=== PATIENT | male | born 1960 | race Caucasian/White ===

== ENCOUNTER 2017-01-03 07:38 | Day surgery (SDC) | payer BC ==
[~2017-01-03 07:38] MED LIST: Bupivacaine 25%/EPINEPHrine/PF 30 ML ONE; Lidocaine 2% 5 ML SDV ONE; Midazolam 1 MG/ML 2 ML SDV ONE; Propofol 200 MG/20 ML SDV ONE; fentaNYL 100 MCG/2 ML SDV ONE
[2017-01-03] MEDS ORDERED: Bupivacaine 0.25%/EPINEPHrine 1:200,000 10 ML SDV INJECT ONE (08:00)
[2017-01-03] MEDS ORDERED: Lactated Ringers 1,000 ML IV SCH (08:00)
[2017-01-03] MEDS ORDERED: Acetaminophen/HYDROcodone 325-5 MG Tab PO PRN (08:00)
--- NOTE | 2017-01-03 08:14 | PCM.PREANE ---
Preanesthetic Assessment - Anesthesia/Transfusion/Family Hx Anesthesia History: Prior Anesthesia Without Reaction Family History of Anesthesia Reaction: No Transfusion History: No Prior Transfusion(s) Intubation History: Unknown - Review of Systems General: No Symptoms Pulmonary: No Symptoms Cardiovascular: No Symptoms Gastrointestinal: No Symptoms Neurological: No Symptoms Other: Reports: None - Physical Assessment Height: 1.85 m Weight: 121.563 kg ASA Class: 2 Mental Status: Alert & Oriented x3 Airway Class: Mallampati = 2 Dentition: Reports: Normal Dentition Thyro-Mental Finger Breadths: 3 Mouth Opening Finger Breadths: 3 ROM/Head Extension: Full Lungs: Clear to Auscultation, Normal Respiratory Effort Cardiovascular: Regular Rate, Regular Rhythm - Allergies Allergies/Adverse Reactions: Allergies Allergy/AdvReac Type Severity Reaction Status Date / Time No Known Allergies Allergy Verified 11/29/15 15:02 - Blood Blood Available: No - Anesthesia Plan Pre-Op Medication Ordered: None - Acknowledgements Anesthesia Type Planned: MAC Pt an Appropriate Candidate for the Planned Anesthesia: Yes Alternatives and Risks of Anesthesia Discussed w Pt/Guardian: Yes Pt/Guardian Understands and Agrees with Anesthesia Plan: Yes PreAnesthesia Questionnaire HEENT History: Reports: Other (See Below) Other HEENT History: h/o trauma to his right eye requiring 7 surgeries, uses reading glasses Cardiovascular History: Reports: Hypertension, Syncope Respiratory History: Reports: None Gastrointestinal History: Reports: GERD, Other (See Below) (esophagitis) Genitourinary History: Reports: None Musculoskeletal History: Reports: Fracture Other Musculoskeletal History: right leg and hand Neurological History: Reports: None Psychiatric History: Reports: None Endocrine/Metabolic History: Reports: Obesity/BMI 30+ Hematologic History: Reports: None Immunologic History: Reports: None Oncologic (Cancer) History: Reports: None Dermatologic History: Reports: None - Past Surgical History Head Surgeries/Procedures: Reports: None HEENT Surgical History: Reports: Eye Surgery (x7) Cardiovascular Surgical History: Reports: None Respiratory Surgical History: Reports: None GI Surgical History: Reports: Colonoscopy Male Surgical History: Reports: Vasectomy Neurological Surgical History: Reports: None Musculoskeletal Surgical History: Reports: None Oncologic Surgical History: Reports: None Dermatological Surgical History: Reports: None - SUBSTANCE USE Smoking Status *Q: Former Smoker (quit smoking 24 years ago) Recreational Drug Use History: No - HOME MEDS Home Medications: Home Meds Lisinopril 10 mg PO DAILY 11/29/15 [History] Aspirin [[place] Aspirin] 81 mg PO DAILY 12/28/16 [History] Omeprazole 20 mg PO DAILY 12/28/16 [History] - CURRENT (IN HOUSE) MEDS Current Meds: Current Medications Hydrocodone Bitart/Acetaminophen ([place] 325-5 Mg) 1 tab PO Q4H PRN PRN Reason: Pain Cefazolin Sodium/Dextrose 2 gm (/ Premix) 50 mls @ 100 mls/hr IV ONETIME ONE Stop: 01/03/17 08:59 Lactated Ringer's (Ringers, Lactated) 1,000 mls @ 125 mls/hr IV ASDIRECTED MADDI Last Admin: 01/03/17 08:05 Dose: 125 mls/hr Discontinued Medications Bupivacaine HCl/Epinephrine Bitart ([place] 0.25%/Epinephrine 1:200,000) 10 ml INJECT ONETIME ONE Stop: 01/03/17 08:01 Fentanyl (Sublimaze) Confirm Administered Dose 100 mcg .ROUTE .STK-MED ONE Stop: 01/03/17 07:14 Bupivacaine HCl/Epinephrine Bitart (Sensorc Mpf 0.25%-Epi 1:374271) Confirm Administered Dose 30 mls @ as directed .ROUTE .STK-MED ONE Stop: 01/03/17 07:30 Lidocaine (Xylocaine-Mpf 2%) Confirm Administered Dose 5 ml .ROUTE .STK-MED ONE Stop: 01/03/17 07:13 Midazolam HCl (Versed 1 Mg/Ml) Confirm Administered Dose 2 mg .ROUTE .STK-MED ONE Stop: 01/03/17 07:14 Propofol (Diprivan 20 Ml) Confirm Administered Dose 400 mg .ROUTE .STK-MED ONE Stop: 01/03/17 07:13
[2017-01-03] MEDS ORDERED: ceFAZolin 2 GM in Premix Bag 1 BAG IV ONE (08:30)
--- NOTE | 2017-01-03 10:06 | PCM48HPAN ---
Post Anesthesia Note - EVALUATION WITHIN 48HRS OF ANESTHETIC Vital Signs in Normal Range: Yes Patient Participated in Evaluation: Yes Respiratory Function Stable: Yes Airway Patent: Yes Cardiovascular Function Stable: Yes Hydration Status Stable: Yes Pain Control Satisfactory: Yes Nausea and Vomiting Control Satisfactory: Yes Mental Status Recovered: Yes - COMMENTS/OBSERVATIONS Free Text/Narrative:: No anesthesia problems. Patient skipped recovery room phase of postoperative care.
[2017-01-03 10:21] VITALS: BP 107/56
--- NOTE | 2017-01-04 18:08 | PCM.OPNOTE ---
- General Post-Op/Procedure Note Date of Surgery/Procedure: 01/03/17 Operative Procedure(s): right carpal tunnel release Pre Op Diagnosis: right carpal tunnel Post-Op Diagnosis: Same Anesthesia Technique: Local, MAC Primary Surgeon: Katie Gutierrez Manager Lighting: Ольга Myers Complications: None Condition: Good Free Text/Narrative:: [id number]
--- NOTE | 2017-01-04 23:28 | OR ---
SURGEON: HERBERTH MONROE MD DATE OF PROCEDURE: 01/03/2017 PREOPERATIVE DIAGNOSIS: Right carpal tunnel syndrome. POSTOPERATIVE DIAGNOSIS: Right carpal tunnel syndrome. PROCEDURE: Right carpal tunnel release. LABORER POLE CREW: MAGDALENA Li. INDICATION: Mr. Dean is a 56-year-old gentleman with right carpal tunnel syndrome. Risks and benefits of right carpal tunnel release were discussed with him, and he is in agreement to proceed. Risks were including, but not limited to bleeding, infection, damage to underlying or overlying structures, possible need for future interventions, and possible scarring. PROCEDURE IN DETAIL: After informed consent was obtained and placed on the chart, the patient was brought to the operating theater and laid in the supine position. After adequate local MAC anesthetic was obtained, the area was prepped and draped, and a time-out was completed to confirm side and site. The arm was then exsanguinated. The tourniquet was inflated to 200 mmHg. Once completed, attention was then paid to dissection over the transverse carpal ligament, and a #15 blade was used to dissect through the skin and subcutaneous tissues under direct visualization. Dissection was confirmed distally and proximally using a Littler scissors and after complete release, the wound was irrigated, and a 5-0 nylon stitch was used to close the skin in a horizontal mattress fashion after copious irrigation. The wound was then dressed with Xeroform, fluffs, Kerlix gauze dressing, and 2-inch Pramod wrap. The patient tolerated the procedure well, and all counts and needles were correct at the end of the case. FOLLOWUP INSTRUCTIONS: The patient will see us in clinic in 10 to 14 days for suture removal sooner if any problems, questions, or concerns. He was given a prescription for [place]. HEGGTHE / MODL /[id number]
== END 2017-01-03 10:15 | disposition home or self-care (01) ==
LOC: MW.SDS 07:38
PROVIDERS: ATTEND Plastic Surgery
DX: G56.03 Carpal tunnel syndrome, bilateral upper limbs (principal); K21.9 Gastro-esophageal reflux disease without esophagitis; I10 Essential (primary) hypertension; E66.9 Obesity, unspecified; Z68.35 Body mass index [BMI] 35.0-35.9, adult; Z79.899 Other long term (current) drug therapy; Z79.82 Long term (current) use of aspirin; Z98.52 Vasectomy status; Z98.890 Other specified postprocedural states; Z87.891 Personal history of nicotine dependence
CPT/HCPCS: 64721; J0690; J2250; J3010; J7120; 01810; J2704

== ENCOUNTER 2017-01-17 08:29 | Day surgery (SDC) | payer BC ==
[~2017-01-17 08:29] MED LIST changes: +Acetaminophen/HYDROcodone 325-5 MG Tab PO PRN; +Bupivacaine 0.25% 10 ML SDV INJECT ONE; +Bupivacaine 0.25% 10 ML SDV ONE; -Bupivacaine 25%/EPINEPHrine/PF 30 ML ONE; +Lactated Ringers 1,000 ML IV SCH; +ceFAZolin 2 GM in Premix Bag 1 BAG IV ONE
--- NOTE | 2017-01-17 08:58 | PCM.PREANE ---
Preanesthetic Assessment - Anesthesia/Transfusion/Family Hx Anesthesia History: Prior Anesthesia Without Reaction Family History of Anesthesia Reaction: No Transfusion History: No Prior Transfusion(s) Intubation History: Unknown - Review of Systems General: No Symptoms Pulmonary: No Symptoms Cardiovascular: No Symptoms Gastrointestinal: No Symptoms Neurological: No Symptoms Other: Reports: None - Physical Assessment O2 Sat by Pulse Oximetry: 95 Respiratory Rate: 16 Vital Signs: Last Vital Signs Temp 37.2 C 01/17/17 08:43 Pulse 76 01/17/17 08:43 Resp 16 01/17/17 08:43 BP 117/69 01/17/17 08:43 Pulse Ox 95 01/17/17 08:43 Height: 1.85 m Weight: 121.563 kg ASA Class: 2 Mental Status: Alert & Oriented x3 Airway Class: Mallampati = 2 Dentition: Reports: Normal Dentition Thyro-Mental Finger Breadths: 3 Mouth Opening Finger Breadths: 3 ROM/Head Extension: Full Lungs: Clear to Auscultation, Normal Respiratory Effort Cardiovascular: Regular Rate, Regular Rhythm - Allergies Allergies/Adverse Reactions: Allergies Allergy/AdvReac Type Severity Reaction Status Date / Time No Known Allergies Allergy Verified 11/29/15 15:02 - Blood Blood Available: No - Anesthesia Plan Pre-Op Medication Ordered: None - Acknowledgements Anesthesia Type Planned: MAC Pt an Appropriate Candidate for the Planned Anesthesia: Yes Alternatives and Risks of Anesthesia Discussed w Pt/Guardian: Yes Pt/Guardian Understands and Agrees with Anesthesia Plan: Yes PreAnesthesia Questionnaire HEENT History: Reports: Other (See Below) Other HEENT History: h/o trauma to his right eye requiring 7 surgeries, uses reading glasses Cardiovascular History: Reports: Hypertension, Syncope Respiratory History: Reports: None Gastrointestinal History: Reports: GERD, Other (See Below) (h/o esophagitis) Genitourinary History: Reports: None Musculoskeletal History: Reports: Fracture Other Musculoskeletal History: right leg and hand Neurological History: Reports: None Psychiatric History: Reports: None Endocrine/Metabolic History: Reports: Obesity/BMI 30+ Hematologic History: Reports: None Immunologic History: Reports: None Oncologic (Cancer) History: Reports: None Dermatologic History: Reports: None - Past Surgical History Head Surgeries/Procedures: Reports: None HEENT Surgical History: Reports: Eye Surgery (x7) Cardiovascular Surgical History: Reports: None Respiratory Surgical History: Reports: None GI Surgical History: Reports: Colonoscopy Male Surgical History: Reports: Vasectomy Neurological Surgical History: Reports: None Musculoskeletal Surgical History: Reports: Carpal Tunnel (right CTR a week ago) Oncologic Surgical History: Reports: None Dermatological Surgical History: Reports: None - SUBSTANCE USE Smoking Status *Q: Former Smoker Recreational Drug Use History: No - HOME MEDS Home Medications: Home Meds Lisinopril 10 mg PO DAILY 11/29/15 [History] Aspirin [[place] Aspirin] 81 mg PO DAILY 12/28/16 [History] Omeprazole 20 mg PO DAILY 12/28/16 [History] - CURRENT (IN HOUSE) MEDS Current Meds: Current Medications Hydrocodone Bitart/Acetaminophen ([place] 325-5 Mg) 1 tab PO Q4H PRN PRN Reason: Pain Lactated Ringer's (Ringers, Lactated) 1,000 mls @ 125 mls/hr IV ASDIRECTED MADDI Last Admin: 01/17/17 08:45 Dose: 125 mls/hr Discontinued Medications Bupivacaine HCl (Sensorcaine-Mpf 0.25%) 10 ml INJECT ONETIME ONE Stop: 01/17/17 08:01 Bupivacaine HCl (Sensorcaine-Mpf 0.25%) Confirm Administered Dose 10 ml .ROUTE .STK-MED ONE Stop: 01/17/17 07:39 Fentanyl (Sublimaze) Confirm Administered Dose 100 mcg .ROUTE .STK-MED ONE Stop: 01/17/17 07:03 Cefazolin Sodium/Dextrose 2 gm (/ Premix) 50 mls @ 100 mls/hr IV ONETIME ONE Stop: 01/17/17 08:29 Lidocaine (Xylocaine-Mpf 2%) Confirm Administered Dose 5 ml .ROUTE .STK-MED ONE Stop: 01/17/17 07:03 Midazolam HCl (Versed 1 Mg/Ml) Confirm Administered Dose 2 mg .ROUTE .STK-MED ONE Stop: 01/17/17 07:03 Propofol (Diprivan 20 Ml) Confirm Administered Dose 200 mg .ROUTE .STK-MED ONE Stop: 01/17/17 07:03
[2017-01-17] MEDS ORDERED: ceFAZolin 1 GM Vial ONE (09:35)
[2017-01-17] MEDS ORDERED: Sodium Chloride 0.9% 20 ML ONE (09:35)
--- NOTE | 2017-01-17 10:24 | PCM48HPAN ---
Post Anesthesia Note - EVALUATION WITHIN 48HRS OF ANESTHETIC Vital Signs in Normal Range: Yes Patient Participated in Evaluation: Yes Respiratory Function Stable: Yes Airway Patent: Yes Cardiovascular Function Stable: Yes Hydration Status Stable: Yes Pain Control Satisfactory: Yes Nausea and Vomiting Control Satisfactory: Yes Mental Status Recovered: Yes - COMMENTS/OBSERVATIONS Free Text/Narrative:: no anesthesia problems, patient skipped recovery room phase of postoperative care
[2017-01-17 10:33] VITALS: BP 103/59
--- NOTE | 2017-01-18 09:43 | PCM.OPNOTE ---
- General Post-Op/Procedure Note Date of Surgery/Procedure: 01/17/17 Operative Procedure(s): left carpal tunnel release Pre Op Diagnosis: left carpal tunnel Post-Op Diagnosis: left carpal tunnel Anesthesia Technique: Local, MAC Primary Surgeon: Katie Gutierrez Asian Studies Professor: Ольга Myers Reason Asian Studies Professor Was Necessary: retraction Complications: None Condition: Good
--- NOTE | 2017-01-23 21:03 | OR ---
SURGEON: HERBERTH MONROE MD DATE OF PROCEDURE: 01/17/2017 PREOPERATIVE DIAGNOSIS: Left carpal tunnel syndrome. POSTOPERATIVE DIAGNOSIS: Left carpal tunnel syndrome. PROCEDURE: Left carpal tunnel release. ANESTHESIA: Local MAC. PRODUCT MANAGER E COMMERCE: MAGDALENA Li. INDICATION: Mr. Dean is a 56-year-old gentleman with left carpal tunnel syndrome. He has previously had a right release and has done well with this. Risks and benefits of carpal tunnel release were discussed and he was in agreement to proceed. Risks were including, but not limited to, bleeding, infection, damage to underlying or overlying structures, possible need for future interventions possible scarring. PROCEDURE IN DETAIL: After informed consent was obtained and placed on the chart, the patient brought to the operating theater and laid in the supine position. After adequate local MAC anesthetic was obtained, the area was prepped and draped and a time-out was completed to confirm side and site. Attention was then paid to dissection over the transverse carpal ligament and 15 blade was used to dissect through the skin and subcutaneous tissues after the tourniquet had been inflated. Once the ligament was breached, dissection was carried distally and proximally under direct visualization until complete release of the ligament. The ligament was quite long in this patient. The area was copiously irrigated, and once adequately released, the wound was closed using 5-0 nylon stitches in horizontal mattress fashion. The wound was dressed with Xeroform, fluffs, and Kerlix gauze dressing and a 2-inch Pramod wrap. The patient tolerated this well. All counts and needles were correct at the end of the case. FOLLOWUP INSTRUCTIONS: The patient will see us in clinic in 10 to 14 days sooner if any problems, questions, or concerns. HEGGTMANUEL / KEO /[id number]
== END 2017-01-17 10:30 | disposition home or self-care (01) ==
LOC: MW.SDS 08:29
PROVIDERS: ATTEND Plastic Surgery
DX: G56.02 Carpal tunnel syndrome, left upper limb (principal); I10 Essential (primary) hypertension; K21.9 Gastro-esophageal reflux disease without esophagitis; Z79.82 Long term (current) use of aspirin; Z79.899 Other long term (current) drug therapy; Z98.890 Other specified postprocedural states; Z98.52 Vasectomy status; Z87.891 Personal history of nicotine dependence
CPT/HCPCS: 64721; J0690; J2250; J3010; J7120; 01810; J2704

== ENCOUNTER 2021-04-20 08:27 | Day surgery (SDC) | payer BC ==
[~2021-04-20 08:27] MED LIST changes: -Acetaminophen/HYDROcodone 325-5 MG Tab PO PRN; -Bupivacaine 0.25% 10 ML SDV INJECT ONE; -Bupivacaine 0.25% 10 ML SDV ONE; -Lidocaine 2% 5 ML SDV ONE; -ceFAZolin 2 GM in Premix Bag 1 BAG IV ONE
[2021-04-20] MEDS ORDERED: Propofol 200 MG/20 ML SDV ONE ×3 (09:49→10:32)
[2021-04-20] MEDS ORDERED: Lactated Ringers 1,000 ML IV SCH (10:15)
[2021-04-20 11:19] VITALS: BP 126/72; PULSE 57
== END 2021-04-20 11:45 | disposition home or self-care (01) ==
LOC: MW.SDS 08:27
PROVIDERS: ATTEND Surgery
DX: D12.0 Benign neoplasm of cecum (principal); K22.70 Barrett's esophagus without dysplasia; K57.30 Diverticulosis of large intestine without perforation or abscess without bleeding; K21.00 Gastro-esophageal reflux disease with esophagitis, without bleeding; K44.9 Diaphragmatic hernia without obstruction or gangrene; K31.7 Polyp of stomach and duodenum; K22.89 Other specified disease of esophagus; K31.89 Other diseases of stomach and duodenum; I78.1 Nevus, non-neoplastic; E66.9 Obesity, unspecified; I10 Essential (primary) hypertension; Z79.82 Long term (current) use of aspirin; Z79.899 Other long term (current) drug therapy; Z87.891 Personal history of nicotine dependence; Z98.890 Other specified postprocedural states
CPT/HCPCS: 43239; 45385; J2250; J2704; J3010; J7120; 00813

== ENCOUNTER 2024-05-16 08:03 | Day surgery (SDC) | payer BC ==
[2024-05-16] MEDS: Lactated Ringers 1,000 ML IV SCH (08:33)
[2024-05-16] MEDS ORDERED: Propofol 200 MG/20 ML SDV ONE (09:00)
[2024-05-16] MEDS ORDERED: dexmedeTOMIDine HCl 200 MCG/2 ML SDV ONE (09:19)
[2024-05-16 10:52] VITALS: BP 111/69; PULSE 59
== END 2024-05-16 11:00 | disposition home or self-care (01) ==
LOC: MW.SDS 08:03
PROVIDERS: ATTEND Surgery
DX: K22.70 Barrett's esophagus without dysplasia (principal); K29.50 Unspecified chronic gastritis without bleeding; K31.7 Polyp of stomach and duodenum; K44.9 Diaphragmatic hernia without obstruction or gangrene; I10 Essential (primary) hypertension; E78.00 Pure hypercholesterolemia, unspecified; E66.9 Obesity, unspecified; Z86.16 Personal history of COVID-19; Z79.899 Other long term (current) drug therapy; Z68.34 Body mass index [BMI] 34.0-34.9, adult; Z87.891 Personal history of nicotine dependence
CPT/HCPCS: 43239; J2704; J7120; 00731